=== PATIENT | female | born 1955 | race Caucasian/White ===

== ENCOUNTER 2016-09-24 17:46 | Inpatient (IN) | payer OTHER ==
[~2016-09-24] VITALS: Ht 167.6 cm; Wt 89.2 kg
[~2016-09-24 17:46] MED LIST: BENADRYL25 MG PO; LISINOPRIL-HCT1 EACH PO; MEDROLDOSEPACK PO; MIRALAX255 GM PO; NAPROXEN 500MG500 MG PO; NEXIUM40 MG PO; NORCO 5-325 TA1 EACH PO; PRINZIDE 10-121 EACH PO; PROTONIX40 M2 PO; ZPAK PO
[2016-09-24 17:48] VITALS: BP 149/87
[2016-09-24] MEDS ORDERED: ACETAMINOPHEN-1 EAC1 PO (19:13)
[2016-09-24] MEDS ORDERED: VALACYCLOVIR500 MG PO (19:14)
[2016-09-24] MEDS ORDERED: DOXYCYCLINE 10100 MG PO (19:14)
[2016-09-24] MEDS ORDERED: LISINOPRIL20 MG PO (19:14)
[2016-09-24] MEDS ORDERED: PREDNISONE 10 M10 MG PO (19:14)
[2016-09-24] MEDS ORDERED: ADDERALL 15 MG15 MG PO (19:15)
[2016-09-24 19:50] LABS: ABSOLUTE NEUTROPHILS 11.2 thou/uL (1.4-8.2); BASOPHILS 0.3 % (0.0-2.0); EOSINOPHILS 0.1 % (0.0-3.0); HEMATOCRIT 49.9 % (37.0-47.0); HEMOGLOBIN 16.8 gm/dL (12.0-15.0); LYMPHOCYTES 16.4 % (24.0-44.0); MCH 31.8 pg (26.0-34.0); MCHC 33.6 g/dL (28.0-37.0); MCV 94.7 fL (80.0-100.0); MONOCYTES 6.8 % (1.0-8.0); PLATELET COUNT 154 thou/uL (150-400); POLYS 76.4 % (36.0-66.0); RBC 5.27 mil/uL (4.20-5.00); RDW 13.9 % (10.5-14.5); WBC 14.7 thou/uL (4.0-11.0)
[2016-09-24 19:52] LABS: MANUAL DIFF NO
[2016-09-24 19:54] LABS: CALCIUM 9.8 mg/dL (8.5-10.1); CREATININE 1.1 mg/dL (0.6-1.0); POTASSIUM 3.9 mmol/L (3.5-5.1)
[2016-09-24 23:19] VITALS: BP 124/60
[2016-09-25 00:20] VITALS: BP 139/81
[2016-09-25 03:50] VITALS: BP 117/73
[2016-09-25 08:00] VITALS: BP 116/63
[2016-09-25 12:05] VITALS: BP 130/66
[2016-09-25 16:10] VITALS: BP 139/69
[2016-09-25 18:21] VITALS: BP 139/69
== END 2016-09-25 19:31 | disposition home or self-care (01) | DRG 603 ==
LOC: ER 17:46 → EROBS 22:36 → 4S 22:36
PROVIDERS: Physician Assistant
DX: L03.211 Cellulitis of face (principal); I88.9 Nonspecific lymphadenitis, unspecified; K04.7 Periapical abscess without sinus; J32.2 Chronic ethmoidal sinusitis; J32.0 Chronic maxillary sinusitis; I10 Essential (primary) hypertension; D72.829 Elevated white blood cell count, unspecified; F17.210 Nicotine dependence, cigarettes, uncomplicated; Z87.19 Personal history of other diseases of the digestive system; Z87.442 Personal history of urinary calculi; Z90.710 Acquired absence of both cervix and uterus; Z88.0 Allergy status to penicillin; Z88.8 Allergy status to other drugs, medicaments and biological substances; Z91.040 Latex allergy status